=== PATIENT | male | born 1945 | race Caucasian/White ===

== ENCOUNTER 2020-09-26 10:25 | Emergency (ER) | payer BC, MEDICARE, OTHER ==
[~2020-09-26] VITALS: Ht 182.9 cm; Wt 99.2 kg
[2020-09-26 10:25] VITALS: BP 145/68
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
--- OUTSIDE RECORDS SUMMARY | 2020-09-26 10:30 | CCD | Continuity of Care Document ---
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 09/13/2020 Loratadine 10mg Tablets once a day as needed for allergy symptoms 14tabs H68.011 Ld Wall M.D. 09/13/2020 Lisinopril 30mg Tablets Terry Genao MD Atorvastatin Calcium 20mg Tablets Terry Genao MD History Medications Doxycycline Hyclate 100mg Capsules 2 tabs both at once with food 2caps Frandy Rooney JR. 06/15/2020 - 06/16/2020 Prednisone 20mg Tablets 1 tabs twice a day x 5 days 10tabs R21 Ld Eng JR., M.D. - 04/21/2020 Immunizations Description No Information Available Vital Signs Date Vital Result Comment 09/13/2020 9:33am BP Systolic 138 mmHg BP Diastolic 82 mmHg Heart Rate 92 /min Respiratory Rate 16 /min O2 % BldC Oximetry 97 % Body Temperature 98.3 F Weight 215.00 lb Height 72 inches 6'0" BMI (Body Mass Index) 29.2 kg/m2 Pain Level 2 07/09/2020 3:10pm BP Systolic 138 mmHg BP Diastolic 71 mmHg Heart Rate 78 /min Respiratory Rate 16 /min O2 % BldC Oximetry 97 % Body Temperature 97.8 F Weight 215.00 lb Height 72 inches 6'0" BMI (Body Mass Index) 29.2 kg/m2 Pain Level 0 Results Description No Information Available Procedures Description No Information Available Medical Devices Description No Information Available Encounters Type Date Location Provider Dx Diagnosis Office Visit 07/09/2020 3:00p [facility] Yony Fuchs, P.A. S30.861A Insect bite (nonvenomous) of abdominal w all, init encntr W57.xxxA Bit/stung by nonvenom insect & oth nonvenom arthropods, init Office Visit 06/15/2020 11:45a [facility] DAGMAR Jimenez S20.162A Insect bite (nonvenomous) of breast, left breast, init S20.152A Superficial foreign body of breast, left breast, init encntr Office Visit 04/16/2020 1:30p [facility] DAGMAR Jimenez R21 Rash and other nonspecific skin eruption Assessments Date Code Description Provider 09/13/2020 H68.011 Acute Eustachian salpingitis, ri ght ear Alexandria Garrido, TOAN 07/09/2020 S30.861A Insect bite (nonveno mous) of abdominal wall, initial encounter Yony Fuchs PIsaac 07/09/2020 W57.xxxA Bitten or stung by n onvenomous insect and other nonvenomous arthropods, initial encounter Yony Fuchs P.A. 06/15/2020 S20.162A Insect bite (nonveno mous) of breast, left breast, initial encounter DAGMAR Jimenez 06/15/2020 S20.152A Superficial foreign body of breast, left breast, initial encounter DAGMAR Jimenez 04/16/2020 R21 Rash and other nonspecific skin eruption DAGMAR Jimenez Plan of Treatment 09/13/2020 - Alexandria Garrido NP* H68.011 Acute Eustachian salpingitis, right ear* New Medication:* Fluticasone Propionate Nasal [place] Allergy Relief 24- Hour 50 mcg/Act - 2 actuations in each nostril every day or 1 actuation in each nostril bid; max: 2 actuations in each nostril/day * Loratadine 10 mg - once a day as needed for allergy symptoms * Comments:* fluticasone & oral antihistamine as reviewedwarm compresstylenol/motrin PRN for pain Functional Status Description No Information Available Mental Status Description No Information Available Referrals Description No Information Available
--- OUTSIDE RECORDS SUMMARY | 2020-09-26 10:30 | CCD | Continuity of Care Document ---
Author Author Eliezer CHEUNG P.A. 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 06/15/2020 - 06/16/2020 Prednisone 20mg Tablets 1 tabs twice a day x 5 days 10tabs R21 Ld Eng JR., M.D. - 04/21/2020 Immunizations Description No Information Available Vital Signs Date Vital Result Comment 07/09/2020 3:10pm BP Systolic 138 mmHg BP Diastolic 71 mmHg Heart Rate 78 /min Respiratory Rate 16 /min O2 % BldC Oximetry 97 % Body Temperature 97.8 F Weight 215.00 lb Height 72 inches 6'0" BMI (Body Mass Index) 29.2 kg/m2 Pain Level 0 06/15/2020 11:54am BP Systolic 150 mmHg BP Diastolic 80 mmHg Heart Rate 78 /min Respiratory Rate 16 /min O2 % BldC Oximetry 98 % Body Temperature 97.5 F Weight 215.00 lb Height 72 inches 6'0" BMI (Body Mass Index) 29.2 kg/m2 Pain Level 0 Results Description No Information Available Procedures Description No Information Available Medical Devices Description No Information Available Encounters Type Date Location Provider Dx Diagnosis Office Visit 07/09/2020 3:00p [facility] Yony Cheung, P.A. S30.861A Insect bite (nonvenomous) of abdominal [...] skin eruption Assessments Date Code Description Provider 07/09/2020 S30.861A Insect bite (nonveno mous) of abdominal wall, initial encounter Yony Cheung, P.A. 07/09/2020 W57.xxxA Bitten or stung by n onvenomous insect and other nonvenomous arthropods, initial encounter Yony Cheung P.A. 06/15/2020 S20.162A Insect bite (nonveno mous) of breast, left breast, initial encounter DAGMAR Jimenez 06/15/2020 S20.152A Superficial foreign body of breast, left breast, initial encounter DAGMAR Jimenez 04/16/2020 R21 Rash and other nonspecific skin eruption DAGMAR Jimenez Plan of Treatment 07/09/2020 - Yony Cheung, P.A.* S30.861A Insect bite (nonvenomous) of abdominal wall, initial encounter* Comments:* Lyme prophylaxis with doxycycline as tick may have been attached over 48 [id number] doxycycline given PO in office (2, 100mg capsules)Lot [id number] 08/26/2020Signs/symptoms of Lyme and other tick borne diseases discussedFollow with PCP or return for any concerns. Patient voiced understanding and agrees to treatment plan * W57.xxxA Bitten or stung by nonvenomous insect and other nonvenomous arthropods, initial encounter Functional Status Description No Information Available Mental Status Description No Information Available Referrals Description No Information Available
--- OUTSIDE RECORDS SUMMARY | 2020-09-26 10:30 | CCD | Continuity of Care Document ---
Author Author Eliezer CHEUNG P.A. Organization Unknown Address [address] [place] [address] [place] [address] Phone [phone] Care Team Providers Care Printing Agent Name Role Phone Terry Genao MD [facility] [place] [phone] Problems Description No Information Available Social History [...] tick may have been attached over 48 [id number] doxycycline given PO in office (2, 100mg capsules)Lot [id number] 08/26/2020Signs/symptoms of Lyme and other tick borne diseases discussedFollow with PCP or return for any concerns. Patient voiced understanding and agrees to treatment plan * W57.xxxA Bitten or stung by nonvenomous insect and other nonvenomous arthropods, initial encounter Functional Status Description No Information Available Mental Status Description No Information Available Referrals Description No Information Available
--- OUTSIDE RECORDS SUMMARY | 2020-09-26 10:30 | CCD | Continuity of Care Document ---
Author Author Eliezer GARRIDO LAMINATOR PRINTED CIRCUIT BOARDS Organization Unknown Address [address] [place] [address] [place] [address] Phone [phone] Care Team Providers Care Fingerprint Technician Name Role Phone Terry Genao MD [facility] [phone] Problems Description No Information Available Social History Type Date Description Comments Sex Unknown Tobacco Use Start: Unknown Heavy tobacco smoker (more than 10 cigarettes/day) x 20 years ETOH Use consumes 4-5 beers per week Allergies, Adverse Reactions, Alerts Active Allergies Reaction Severity Comments Date NKDA 04/16/2020 Metals 04/16/2020 Medications Active Medications SIG Qnty Indications Ordering Provide r Date Fluticasone Propionate Nasal [place] Aller gy Relief 24- Hour 50mcg/Act Suspension [...] Date Location Provider Dx Diagnosis Office Visit 09/13/2020 9:15a [facility] Cydney Hannah P H68.011 Acute Eustachian salpingitis, right ear Office Visit 07/09/2020 3:00p [facility] Yony Fuchs, P.A. S30.861A Insect bite (nonvenomous) of abdominal w all, init encntr W57.xxxA Bit/stung by nonvenom insect & oth nonvenom arthropods, init Office Visit 06/15/2020 11:45a [facility] DAGMAR Jimenez S20.162A Insect bite (nonvenomous) of breast, left breast, init S20.152A Superficial foreign body of breast, left breast, init encntr Office Visit 04/16/2020 1:30p [facility] DAGMAR Jimenez R21 Rash and other nonspecific skin eruption Assessments Date Code Description Provider 09/13/2020 H68.011 Acute Eustachian salpingitis, ri ght ear Alexandria Garrido NP 07/09/2020 S30.861A Insect bite (nonveno mous) of abdominal wall, initial encounter Yony Fuchs, P.A. 07/09/2020 W57.xxxA Bitten or stung by [...] right ear* New Medication:* Fluticasone Propionate Nasal [place] Allergy Relief 24- Hour 50 mcg/Act - [...]
[2020-09-26] MEDS ORDERED: LISI30TA4 (10:31)
[2020-09-26] MEDS ORDERED: FLUTISP (10:31)
[2020-09-26] MEDS ORDERED: ATOR1TAB21 (10:31)
[2020-09-26] MEDS ORDERED: LORA-674 (10:31)
[2020-09-26] MEDS ORDERED: AUGM875T28 PO (10:53)
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
== END 2020-09-26 10:59 | disposition home or self-care (01) ==
LOC: M ED 10:25
DX: H66.91 Otitis media, unspecified, right ear (principal); A69.20 Lyme disease, unspecified; I10 Essential (primary) hypertension; E78.5 Hyperlipidemia, unspecified; F17.200 Nicotine dependence, unspecified, uncomplicated

== ENCOUNTER → 2021-01-25 | Outpatient (CLI) | payer MEDICARE ==
[~2021-01-25] MED LIST: ATOR1TAB21; AUGM875T28 PO; FLUTISP; LISI30TA4; LORA-674
[2021-01-25 17:10] LABS: HEMATOCRIT 42.2 % (42.0-52.0); HEMOGLOBIN 13.7 g/dl (13.5-17.5); MEAN CORPUSCULAR HEMOGLOBIN 31.6 pg (27.0-33.0); MEAN CORPUSCULAR HGB CONC 32.5 g/dl (32.0-36.5); MEAN CORPUSCULAR VOLUME 97.5 fl (80.0-96.0); PLATELET COUNT, AUTOMATED 332 10^3/uL (150-450); RED BLOOD COUNT 4.33 10^6/uL (4.30-6.10); WHITE BLOOD COUNT 10.8 10^3/uL (4.0-10.0)
[2021-01-25 17:36] LABS: BILIRUBIN,TOTAL 0.5 MG/DL (0.2-1.0); CALCIUM LEVEL 10.2 MG/DL (8.8-10.2); CHOLESTEROL RISK RATIO 2.718 (<5); CREATININE FOR GFR 1.37 MG/DL (0.70-1.30); GLOMERULAR FILTRATION RATE 54.2 (>42); POTASSIUM SERUM 4.8 MEQ/L (3.5-5.1); TOTAL PROTEIN 7.6 GM/DL (6.4-8.2)
== END ==
LOC: M WUC 13:01
PROVIDERS: ATTEND Family Medicine
DX: I10 Essential (primary) hypertension (principal)

== ENCOUNTER → 2021-04-20 | Outpatient (CLI) | payer MEDICARE | LOC: M LABSMTC 09:33 | PROVIDERS: ATTEND Anesthesiology | DX: Z01.818 Encounter for other preprocedural examination (principal); Z11.52 Encounter for screening for COVID-19 ==

== ENCOUNTER 2021-04-25 09:36 | Day surgery (SDC) | payer MEDICARE ==
[~2021-04-25] VITALS: Ht 182.9 cm; Wt 90.7 kg
[~2021-04-25 09:36] MED LIST changes: +NS 1,000 ML IV ONE
[2021-04-25] MEDS ORDERED: propofoL 200 MG/20 ML VIAL As Ordered ONE ×2 (10:17→12:10)
[2021-04-25] MEDS ORDERED: LIDOCAINE 2% 100MG/5ML SDV (FOR ANES.) As Ordered ONE (11:53)
[2021-04-25 12:05] VITALS: BP 124/60
== END 2021-04-25 12:16 | disposition home or self-care (01) ==
LOC: M OPP 09:36
PROVIDERS: ATTEND Internal Medicine Gastroenterology
DX: K63.5 Polyp of colon (principal); K64.0 First degree hemorrhoids; R19.5 Other fecal abnormalities; Z79.899 Other long term (current) drug therapy; F17.210 Nicotine dependence, cigarettes, uncomplicated

== ENCOUNTER → 2021-07-29 | Outpatient (CLI) | payer MEDICARE ==
[~2021-07-29] MED LIST changes: -NS 1,000 ML IV ONE
--- NOTE | 2021-07-31 05:54 | REP ---
INDICATION: SMOKER COMPARISON: None. TECHNIQUE: Axial noncontrast images from the thoracic inlet to the upper abdomen using low-dose lung screening technique (LDCT). FINDINGS: There is an 8 mm soft tissue nodule in the right lower lobe (series 201; image 59). No further acute consolidation, suspicious nodule or mass lesion appreciated. IMPRESSION: Lung-RADS category 4A with 8 mm nodule in the right lower lobe. Management recommendations include 3 month follow-up examination or PET-CT evaluation. <Electronically signed by Karl Casarez > 07/31/21 [id number]
== END ==
LOC: M RAD 07:33
PROVIDERS: ATTEND Family Medicine
DX: Z87.891 Personal history of nicotine dependence (principal)

== ENCOUNTER → 2021-08-15 | Outpatient (CLI) | payer MEDICARE | LOC: M PLARAD 14:00 | PROVIDERS: ATTEND Family Medicine | DX: R91.1 Solitary pulmonary nodule (principal) | CPT/HCPCS: 78815; A9552 ==

== ENCOUNTER → 2021-10-07 | Outpatient (CLI) | payer MEDICARE ==
[2021-10-07 10:40] LABS: BLOOD UREA NITROGEN 17 MG/DL (7-18); CALCIUM LEVEL 9.7 MG/DL (8.8-10.2); CARBON DIOXIDE LEVEL 26 MEQ/L (21-32); CHLORIDE LEVEL 105 MEQ/L (98-107); CREATININE FOR GFR 0.98 MG/DL (0.70-1.30); GLOMERULAR FILTRATION RATE > 60.0 (>42); GLUCOSE, FASTING 151 MG/DL (70-100); POTASSIUM SERUM 4.3 MEQ/L (3.5-5.1); SODIUM LEVEL 138 MEQ/L (136-145)
[2021-10-07 10:51] LABS: CORTISOL AM 2.2 UG/DL (4.3-22.4)
== END ==
LOC: M WUC 08:02
PROVIDERS: ATTEND Family Medicine
DX: E27.9 Disorder of adrenal gland, unspecified (principal)

== ENCOUNTER → 2021-11-30 | Outpatient (CLI) | payer MEDICARE ==
[2021-11-30 10:26] LABS: BLOOD UREA NITROGEN 19 MG/DL (7-18); CREATININE FOR GFR 1.11 MG/DL (0.70-1.30); GLOMERULAR FILTRATION RATE > 60.0 (>42)
== END ==
LOC: M WUC 08:36
PROVIDERS: ATTEND Family Medicine
DX: I10 Essential (primary) hypertension (principal)

== ENCOUNTER → 2021-12-08 | Outpatient (CLI) | payer MEDICARE ==
[~2021-12-08] MED LIST changes: +PROHANCE 279.3MG/ML 15ML VIAL As Ordered ONE; +PROHANCE 279.3MG/ML 5ML VIAL As Ordered ONE
== END ==
LOC: M RAD 09:59
PROVIDERS: ATTEND Family Medicine
DX: E27.9 Disorder of adrenal gland, unspecified (principal)
CPT/HCPCS: 71271; 74183; A9576

== ENCOUNTER → 2023-01-03 | Outpatient (CLI) | payer MEDICARE ==
[~2023-01-03] MED LIST changes: +FLUT50SP17; -FLUTISP; -PROHANCE 279.3MG/ML 15ML VIAL As Ordered ONE; -PROHANCE 279.3MG/ML 5ML VIAL As Ordered ONE
== END ==
LOC: M RAD 10:06
PROVIDERS: ATTEND Family Medicine
DX: Z12.2 Encounter for screening for malignant neoplasm of respiratory organs (principal); F17.210 Nicotine dependence, cigarettes, uncomplicated

== ENCOUNTER → 2023-03-30 | Outpatient (CLI) | payer MEDICARE ==
[2023-03-30 09:47] LABS: BASO % 0.4 % (0.0-1.0); EOS # 0.3 10^3/uL (0.0-0.5); EOS % 3.2 % (0.0-3.0); HEMOGLOBIN 12.8 g/dl (13.5-17.5); LYMPH # 1.8 10^3/uL (1.5-5.0); LYMPH % 21.7 % (24.0-44.0); MEAN CORPUSCULAR VOLUME 96.9 fl (80.0-96.0); MONO # 0.7 10^3/uL (0.0-0.8); NEUTROPHILS # 5.4 10^3/uL (1.5-8.5); NEUTROPHILS % 66.3 % (36.0-66.0); PLATELET COUNT, AUTOMATED 291 10^3/uL (150-450); RED BLOOD COUNT 4.13 10^6/uL (4.30-6.10); WHITE BLOOD COUNT 8.1 10^3/uL (4.0-10.0)
[2023-03-30 10:09] LABS: ALBUMIN 3.6 G/DL (3.2-5.2); ALKALINE PHOSPHATASE 77 U/L (46-116); ALT/SGPT 17 U/L (7.0-40); AST/SGOT 14 U/L (<34); BILIRUBIN,TOTAL 0.6 MG/DL (0.3-1.2); BLOOD UREA NITROGEN 14 MG/DL (9-23); CALCIUM LEVEL 9.4 MG/DL (8.3-10.6); CARBON DIOXIDE LEVEL 28 MMOL/L (20-31); CHLORIDE LEVEL 104 MMOL/L (98-107); CHOLESTEROL LEVEL 178 MG/DL (<200); CHOLESTEROL RISK RATIO 2.64 (<5); CREATININE FOR GFR 0.86 MG/DL (0.70-1.30); GLOMERULAR FILTRATION RATE > 60.0 (>42); GLUCOSE, FASTING 99 MG/DL (74-106); HDL CHOLESTEROL 67.2 MG/DL (>40); LDL CHOLESTEROL 98.8 MG/DL (<100); NON-HDL-C 110.8 MG/DL; POTASSIUM SERUM 4.5 MMOL/L (3.5-5.1); SODIUM LEVEL 139 MMOL/L (136-145); TOTAL PROTEIN 6.9 G/DL (5.7-8.2); TRIGLYCERIDES LEVEL 60 MG/DL (<150)
== END ==
LOC: M WUC 08:14
PROVIDERS: ATTEND Family Medicine
DX: Z00.00 Encounter for general adult medical examination without abnormal findings (principal)

== ENCOUNTER → 2024-01-10 | Outpatient (CLI) | payer MEDICARE ==
[~2024-01-10] MED LIST changes: -FLUT50SP17; +FLUTISP; +LORA-1041; -LORA-674
== END ==
LOC: M RAD 13:39
PROVIDERS: ATTEND Family Medicine
DX: Z87.81 Personal history of (healed) traumatic fracture (principal)

== ENCOUNTER → 2025-03-06 | Outpatient (CLI) | payer MEDICARE | LOC: M RAD 10:19 | PROVIDERS: ATTEND Family Medicine | DX: Z87.891 Personal history of nicotine dependence (principal) ==

== ENCOUNTER → 2025-07-06 | Outpatient (CLI) | payer MEDICARE | LOC: M RAD 12:49 | PROVIDERS: ATTEND Family Medicine | DX: M25.511 Pain in right shoulder (principal); M19.011 Primary osteoarthritis, right shoulder ==

== ENCOUNTER → 2025-07-07 | Outpatient (REF) | payer MEDICARE ==
[2025-07-07 12:50] LABS: BASO # 0.0 10^3/uL (0.0-0.2); BASO % 0.3 % (0.0-1.0); EOS # 0.2 10^3/uL (0.0-0.5); EOS % 2.3 % (0.0-3.0); LYMPH # 1.2 10^3/uL (1.5-5.0); LYMPH % 11.6 % (24.0-44.0); MONO # 0.7 10^3/uL (0.0-0.8); MONO % 6.3 % (2.0-8.0); NEUTROPHILS # 8.3 10^3/uL (1.5-8.5); NEUTROPHILS % 78.9 % (36.0-66.0); PLATELET COUNT, AUTOMATED 358 10^3/uL (150-450)
[2025-07-07 13:32] LABS: ALT/SGPT 23 U/L (7.0-40); AST/SGOT 23 U/L (<34); CALCIUM LEVEL 9.8 MG/DL (8.3-10.6); CARBON DIOXIDE LEVEL 27 MMOL/L (20-31); CHLORIDE LEVEL 105 MMOL/L (98-107); CHOLESTEROL LEVEL 178 MG/DL (<200); CHOLESTEROL RISK RATIO 2.92 (<5); CREATININE FOR GFR 0.77 MG/DL (0.70-1.30); GLOMERULAR FILTRATION RATE > 90.0 (>42); LDL CHOLESTEROL 106.2 MG/DL (<100); NON-HDL-C 117.2 MG/DL; POTASSIUM SERUM 4.7 MMOL/L (3.5-5.1); SODIUM LEVEL 140 MMOL/L (136-145); TRIGLYCERIDES LEVEL 55 MG/DL (<150)
== END ==
LOC: M LABWUC 12:17
PROVIDERS: ATTEND Family Medicine
DX: Z00.00 Encounter for general adult medical examination without abnormal findings (principal); Z79.899 Other long term (current) drug therapy